=== PATIENT | female | born 1985 | race Caucasian/White ===

== ENCOUNTER 2016-09-30 14:42 | Emergency (ER) | payer BC ==
[~2016-09-30] VITALS: Ht 170.2 cm; Wt 123.0 kg
[~2016-09-30 14:42] MED LIST: DM H; IPRA14.76
[2016-09-30 14:56] VITALS: Ht 170.2 cm; Wt 123.0 kg
[2016-09-30] MEDS ORDERED: HYDROCODONE/APAP (5/325) TAB PO ONE (15:30)
--- NOTE | 2016-09-30 15:42 | ERD ---
ER Documentation Chief Complaint Date/Time DATE: 09/30/16 TIME: 15:39 Chief Complaint RIGHT FOOT PAIN, TWISTED PLAYING PAINT BALL HPI This is a 31-year-old female who presents to the emergency department today complaining of right foot and ankle pain after injuring herself while playing paint ball today. Patient states she was sliding down a hill and her foot got caught and bent backwards. Denies any previous trauma. States she is unable to ambulate. Denies any fevers or chills ROS All systems reviewed and are negative except as per history of present illness. Medications Home Meds Active Scripts Naproxen* (Naprosyn*) 500 Mg Tablet, 500 MG PO BID Y for PAIN AND/OR INFLAMMATION, #30 TAB Prov:MAULIK DUQUE PA-C 09/30/16 Hydrocodone/Acetaminophen ([place] 5-325 Tablet) 1 Each Tablet, 1 TAB PO Q6H Y for PAIN, #12 TAB Prov:MAULIK DUQUE PA-C 09/30/16 Reported Medications Dm Hb/Pseudoephed/Acetamin/Cp (Theraflu Cold & Cough Med) 1 Pkt Packet 03/27/11 Albuterol/Ipratropium (Combivent) 14.7 Gm Inha 03/27/11 Allergies Allergies: Coded Allergies: No Known Allergy (Unverified , 03/27/11) PMhx/Soc History of Surgery: Yes (Appendectomy, Left wrist cyst removal) Anesthesia Reaction: No Hx Neurological Disorder: No Hx Respiratory Disorders: Yes (Asthma) Hx Cardiac Disorders: No Hx Psychiatric Problems: No Hx Miscellaneous Medical Probl: No Hx Alcohol Use: Yes (Beer- occassionally) Hx Substance Use: No Hx Tobacco Use: Yes Smoking Status: Current every day smoker Physical Exam Vitals Vital Signs Date Time Temp Pulse Resp B/P Pulse Ox O2 Delivery O2 Flow Rate FiO2 09/30/16 14:56 97.9 85 18 154/111 99 Physical Exam Const: Obese, Sitting in wheelchair, no acute distress Head: Atraumatic Eyes: Normal Conjunctiva ENT: Normal External Ears, Nose and Mouth. Neck: Full range of motion..~ No meningismus. Resp: Clear to auscultation bilaterally Cardio: Regular rate and rhythm, no murmurs Skin: No petechiae or rashes MSk: Right ankle with no obvious deformity. Mild effusion. Tenderness palpation medial lateral malleolus. Pain with active range of motion. Right foot with no obvious deformity. Moderate effusion. Pulses 2+. Distal neurovascularly intact. Neur: Awake and alert Psych: Normal Mood and Affect Results 24 hrs Current Medications Medications (Trade) Dose Ordered Sig/Jr Route PRN Reason Start Time Stop Time Status Last Admin Dose Admin Acetaminophen/ Hydrocodone Bitart ([place] (5/325)) 1 tab ONCE ONCE PO 09/30/16 15:30 09/30/16 15:31 DC 09/30/16 15:22 Ketorolac Tromethamine (Toradol) 30 mg ONCE STAT IM 09/30/16 17:01 09/30/16 17:02 DC 09/30/16 17:09 DIAGNOSTIC IMAGING REPORT Patient: CHANO KELLY : 1985 Age: 31 Sex: F MR #: [id number] DOS: 09/30/16 0000 Ordering MD: MAULIK DUQUE PA-C Location: [facility] Room/Bed: PROCEDURE: XR Ankle. CLINICAL INDICATION: Trauma TECHNIQUE: 3 views of the right ankle were performed. COMPARISON: None. FINDINGS: There is no acute fracture or dislocation. The ankle mortise is intact. There is no significant joint effusion. There is mild soft tissue swelling around the ankle more prominent medially. RPTAT: QQ IMPRESSION: No acute fracture or dislocation. Mild soft tissue swelling around the ankle. .Marly Resendez MD, Date Time Electronically viewed and signed by .Marly Resendez MD, MD on 09/30/2016 16: 42 .T/ CC: MAULIK DUQUE PA-C DIAGNOSTIC IMAGING REPORT Patient: CHANO KELLY : 1985 Age: 31 Sex: F MR #: [id number] DOS: 09/30/16 0000 Ordering MD: MAULIK DUQUE PA-C Location: [facility] Room/Bed: PROCEDURE: XR right foot. CLINICAL INDICATION: Trauma TECHNIQUE: Three views of the right foot were obtained. COMPARISON: No prior studies are available for comparison. FINDINGS: There is no acute fracture or dislocation. There is minimal widening of the space between the first and second tarsometatarsal joints but no significant dislocation is present on the AP view. The joint spaces are maintained. The soft tissues are unremarkable. RPTAT: QQ IMPRESSION: Slight widening of the space between the first and second tarsometatarsal joints but no significant fracture or dislocation. No overlying soft tissue swelling. Correlation with area of pain is recommended in which if there is suspicion for injury in this region, a follow-up MRI of the foot may be obtained for evaluation of Lisfranc injury. .Marly Resendez MD, MD Date Time Electronically viewed and signed by .Marly Resendez MD, on 09/30/2016 16: 46 .T/ CC: MAULIK DUQUE PA-C Procedures/MDM This a 31-year-old female who presents to the emergency department today complaining of right foot and ankle pain after sustaining trauma while playing paint ball earlier today. On physical exam patient had moderate diffuse swelling over her foot and ankle and therefore did obtain images. Per the radiology report images of the right ankle show mild soft tissue swelling around the ankle. There is no acute fracture dislocation. Ankle mortise is intact. Images of the right foot show no acute fracture or dislocation. There is minimal widening of the space between the first and second tarsometatarsal joints but no significant dislocation is present on the AP view. Joint spaces are maintained. Soft tissues are unremarkable. Patient symptoms at this time was consistent with sprain versus strain possibly Lisfranc injury. Patient was instructed to stop smoking cigarettes Patient was given [place] here in the emergency department and pain persisted. She was then given a Toradol injection.. I will give her a short course of [place], Naprosyn for home. She was also given an Dev wrap for compression. Given patient's swelling and discomfort I did place her in a splint. She was distal neurovascular intact pre-and post splint application peer she was given crutches to help ambulate. She does appear to have good follow-up. I explained her that she would need likely referral to department specialist. I have also given her referral information for all of [facility] and [facility]. At this time the patient is stable for discharge and outpatient management. Patient should follow up with their PCP in the next 1-2 days. They may return to the emergency department sooner for any persistent or worsening of symptoms. Patient understood and agreed with the plan. Departure Diagnosis: Primary Impression: Injury of foot Encounter type: initial encounter Laterality: right Qualified Code: S99.921A - Injury of foot, right, initial encounter Condition: Fair MAULIK DUQUE PA-C Sep 30, 2016 15:41
--- NOTE | 2016-09-30 16:43 | RADRPT ---
PROCEDURE: XR Ankle. CLINICAL INDICATION: Trauma TECHNIQUE: 3 views of the right ankle were performed. COMPARISON: None. FINDINGS: There is no acute fracture or dislocation. The ankle mortise is intact. There is no significant chelsey int effusion. There is mild soft tissue swelling around the ankle more prominent medially. RPTAT: QQ IMPRESSION: No acute fracture or dislocation. Mild soft tissue swelling around the ankle. .Marly Resendez MD, MD Date Time Electronically viewed and signed by .Marly Resendez MD, on 09/30/2016 16:42 .T/
--- NOTE | 2016-09-30 16:47 | RADRPT ---
PROCEDURE: XR right foot. CLINICAL INDICATION: Trauma TECHNIQUE: Three views of the right foot were obtained. COMPARISON: No prior studies are available for comparison. FINDINGS: There is no acute fracture or dislocation. There is minimal widening of the space between the first and second tarsometatarsal joints but no significant dislocation is present on the AP view. The mary nt spaces are maintained. The soft tissues are unremarkable. RPTAT: QQ IMPRESSION: Slight widening of the space between the first and second tarsometatarsal joints but no significant fracture or dislocation. No overlying soft tissue swelling. Correlation with area of pain is recom mended in which if there is suspicion for injury in this region, a follow-up MRI of the foot may be obtained for evaluation of Lisfranc injury. .Marly Resendez MD, Date Time Electronically viewed and signed by .Marly Resendez MD, on 09/30/2016 16:46 .T/
[2016-09-30] MEDS ORDERED: KETOROLAC 30 MG INJ IM STA (17:01)
[2016-09-30] MEDS ORDERED: HYDR-906 PO (17:03)
[2016-09-30] MEDS ORDERED: NAPR-260 PO (17:03)
[2016-09-30 17:26] VITALS: BP 152/89; PULSE 80; RESP 18; TEMP 98.1
== END 2016-09-30 17:27 | disposition home or self-care (01) ==
LOC: FTE 14:42
DX: S99.921A Unspecified injury of right foot, initial encounter (principal); J45.909 Unspecified asthma, uncomplicated; F17.210 Nicotine dependence, cigarettes, uncomplicated; X50.9XXA Other and unspecified overexertion or strenuous movements or postures, initial encounter; Y92.9 Unspecified place or not applicable
CPT/HCPCS: 29515; 73610; 73630; 96372; 99284; J1885